=== PATIENT | female | born 1995 | race Caucasian/White ===

== ENCOUNTER 2016-10-27 17:58 | Emergency (ER) | payer MEDICAID ==
[~2016-10-27] VITALS: Ht 167.6 cm; Wt 68.0 kg
[~2016-10-27 17:58] MED LIST: BACT800T5 PO; CLON1 PO; SERT100 PO
[2016-10-27 18:02] VITALS: BP 143/99; PULSE 95; RESP 15; TEMP 98.2; O2SAT 98
--- NOTE | 2016-10-27 18:53 | PD ---
HPI Chief Complaint: Skin Problem Time Seen by Provider: 18:25 Travel History International Travel<30 days: No Contact w/Intl Traveler<30days: No Traveled to known affect area: No History of Present Illness HPI 21 year old female presents to the ER with c/o of redness & swelling of the right foot & left arm. She reports to IV drug use in these areas. She reports she has been injecting opiates for the last 4 years. She denies fever, chills, N /V/D, headache, chest pain. Patient denies homicidal or suicidal ideation. PFSH Past Medical History Asthma: Yes Bipolar Disorder: Yes Anxiety: Yes Depression: Yes Cancer: No Cardiovascular Problems: No Diabetes: No Diminished Hearing: No Endocrine: No Genitourinary: No Headaches: No Hepatitis: Yes (C) Hypertension: Yes Immune Disorder: No Musculoskeletal: No Neurologic: No Psychiatric: Yes (PTSD) Reproductive: No Respiratory: Yes (asthma) Seizures: No Tetanus Vaccination: Unknown ?: Unknown LMP: 09/25/16 : 2 Para: 1 Miscarriage: 1 Dilation and Curettage (D&C): Yes Past Surgical History Other Surgery: No Social History Alcohol Use: No Tobacco Use: Yes Substance Use: Yes (pills, meth, iv drug user. used today) Allergies-Medications (Allergen,Severity, Reaction): Coded Allergies: No Known Allergies (Unverified , 03/02/16) Reported Meds & Prescriptions Reported Meds & Active Scripts Active Bactrim DS (Sulfamethoxazole-Trimethoprim) 800-160 Mg Tab 1 Tab PO BID 7 Days Klonopin (Clonazepam) 1 Mg Tab 1 Mg PO TID Reported Zoloft (Sertraline HCl) 100 Mg Tab 100 Mg PO DAILY Klonopin (Clonazepam) 1 Mg Tab 1 Mg PO TID Review of Systems Except as stated in HPI: all other systems reviewed are Neg Skin: Positive Other (redness right foot) Physical Exam Narrative GENERAL: well appearing female. SKIN:right foot erythema, multiple erythematic indurated areas of upper & lower extremities at site of IV drug use. No areas of fluctuance. Warm and dry. No lymphangitis. HEAD: Normocephalic. EYES: No scleral icterus. No injection or drainage. NECK: Supple, trachea midline. No JVD or lymphadenopathy. CARDIOVASCULAR: Regular rate and rhythm without murmurs, gallops, or rubs. RESPIRATORY: Breath sounds equal bilaterally. No accessory muscle use. GASTROINTESTINAL: Abdomen soft, non-tender, nondistended. MUSCULOSKELETAL: No cyanosis, or edema. BACK: Nontender without obvious deformity. No CVA tenderness. Data Data Last Documented VS Vital Signs Date Time Temp Pulse Resp B/P Pulse Ox O2 Delivery O2 Flow Rate FiO2 10/27/16 18:02 98.2 95 15 143/99 98 MDM Medical Decision Making Medical Screen Exam Complete: Yes Emergency Medical Condition: Yes Medical Record Reviewed: Yes Differential Diagnosis cellulitis vs abscess Narrative Course 21 year old female, hx of IV drug use, with multiple areas of superficial infection at injection sites. R foot cellulitis. No signs of systemic infection. She is afebrile. non tachycardic. non toxic appearing. Discussed detox/substance abuse treatment centers in the area with patient. She is familiar with area resources as she was previously in the [employer] [facility]. She states she has the number & knows how to request a bed at /[facility] prescribed clindamycin for right foot cellulitis. Diagnosis Primary Impression: Cellulitis of foot, right Additional Impression: Opiate abuse, continuous Patient Instructions: General Instructions Additional Instructions: CALL [facility] for detox bed Scripts Clindamycin 300 Mg [id number] Mg PO Q6H #40 CAP Ref 0 Prov:Allyssa Rodriguez 10/27/16 Disposition: 01 DISCHARGE HOME Condition: Stable Allyssa Rodriguez October 27, 2016 18:53
[2016-10-27] MEDS ORDERED: CLIN1CAP6 PO (19:07)
== END 2016-10-27 19:45 | disposition home or self-care (01) ==
LOC: NEPD 17:58
DX: L03.119 Cellulitis of unspecified part of limb (principal); J45.909 Unspecified asthma, uncomplicated; F31.9 Bipolar disorder, unspecified; F41.8 Other specified anxiety disorders; I10 Essential (primary) hypertension; K75.89 Other specified inflammatory liver diseases; F43.10 Post-traumatic stress disorder, unspecified; F11.10 Opioid abuse, uncomplicated
CPT/HCPCS: 99282

== ENCOUNTER 2017-03-11 00:12 | Emergency (ER) | payer MEDICAID, OTHER ==
[~2017-03-11] VITALS: Ht 175.3 cm; Wt 71.0 kg
[~2017-03-11 00:12] MED LIST changes: +CLIN1CAP6 PO
[2017-03-11 00:28] VITALS: BP 115/81; PULSE 110; RESP 16; TEMP 98.6; O2SAT 97
--- NOTE | 2017-03-11 00:43 | PD ---
HPI Chief Complaint: Psychiatric Symptoms Time Seen by Provider: 00:21 Travel History International Travel<30 days: No Contact w/Intl Traveler<30days: No Traveled to known affect area: No History of Present Illness HPI 21-year-old female presents to the emergency department under White act for psychiatric evaluation. Patient states she does not know why she is here. She is currently living in a sober living house. Patient was found sleeping naked in another bed, apparently drooling. And patient awoke, she began yelling at herself and staff. Patient states that they were laughing at her so she became very upset. Denies suicidal homicidal ideations. States that she did take Klonopin which she reports being prescribed to her. Denies any other illicit drug use, however patient does have track bain on her bilateral upper extremities from IV drug use. When confronted on this, she states that she has used IV drugs in the past. Denies chest pain or tightness. No difficulty breathing. Denies suicidal or homicidal ideations. States that she is a mother and she needs to be there for her children. She has no other symptoms to report this time. PFSH Past Medical History Asthma: Yes Bipolar Disorder: Yes Anxiety: Yes Depression: Yes Cancer: No Cardiovascular Problems: No Diabetes: No Diminished Hearing: No Endocrine: No Gastrointestinal Disorders: No Genitourinary: No Headaches: No Hepatitis: Yes (C) Hypertension: Yes Immune Disorder: No Implanted Vascular Access Dvce: No Musculoskeletal: No Neurologic: No Psychiatric: Yes (PTSD) Reproductive: No Respiratory: Yes (asthma) Immunizations Current: Yes Seizures: No Tetanus Vaccination: Unknown Influenza Vaccination: No ?: Unknown : 2 Para: 1 Miscarriage: 1 Dilation and Curettage (D&C): Yes Past Surgical History Other Surgery: No Social History Alcohol Use: No Tobacco Use: Yes Substance Use: Yes (pills, meth, iv drug user. used today) Allergies-Medications (Allergen,Severity, Reaction): Coded Allergies: No Known Allergies (Unverified , 03/11/17) Reported Meds & Prescriptions Reported Meds & Active Scripts Active Clindamycin (Clindamycin HCl) 300 Mg Cap 300 Mg PO Q6H Bactrim DS (Sulfamethoxazole-Trimethoprim) 800-160 Mg Tab 1 Tab PO BID 7 Days Klonopin (Clonazepam) 1 Mg Tab 1 Mg PO TID Reported Zoloft (Sertraline HCl) 100 Mg Tab 100 Mg PO DAILY Klonopin (Clonazepam) 1 Mg Tab 1 Mg PO TID Review of Systems Except as stated in HPI: all other systems reviewed are Neg Physical Exam Narrative GENERAL: Well-nourished female patient, tearful, but in no acute distress. SKIN: Focused skin assessment warm/dry. HEAD: Atraumatic. Normocephalic. EYES: Pupils equal and round. No scleral icterus. No injection or drainage. ENT: No nasal bleeding or discharge. Mucous membranes pink and moist. NECK: Trachea midline. No JVD. CARDIOVASCULAR: Tachycardic rate and rhythm. No murmur appreciated. RESPIRATORY: No accessory muscle use. Clear to auscultation. Breath sounds equal bilaterally. GASTROINTESTINAL: Abdomen soft, non-tender, nondistended. Hepatic and splenic margins not palpable. MUSCULOSKELETAL: No obvious deformities. No clubbing. No cyanosis. No edema. NEUROLOGICAL: Awake and alert. No obvious cranial nerve deficits. Motor grossly within normal limits. Normal speech. Data Data Last Documented VS Vital Signs Date Time Temp Pulse Resp B/P (MAP) Pulse Ox O2 Delivery O2 Flow Rate FiO2 03/11/17 04:48 84/52 (63) 03/11/17 04:40 63 19 98 Room Air 03/11/17 00:28 98.6 Orders Orders Complete Blood Count With Diff (03/11/17 00:28) Basic Metabolic Panel (Bmp) (03/11/17 00:28) Psych Screen (03/11/17 00:28) Drug Screen, Random Urine (03/11/17 00:28) Alcohol (Ethanol) (03/11/17 00:28) Salicylates (Aspirin) (03/11/17 00:28) Tylenol (Acetaminophen) (03/11/17 00:28) Ed Urine Pregnancytest Poc (03/11/17 00:28) Hand, Complete (Udl1nae) (03/11/17 ) Lorazepam Inj (Ativan Inj) (03/11/17 01:15) Diet Regular Basic (03/11/17 Breakfast) ^ Straight Catheter (03/11/17 05:26) Labs Laboratory Tests Test 03/11/17 00:45 White Blood Count 6.6 TH/MM3 Red Blood Count 3.81 MIL/MM3 Hemoglobin 12.1 GM/DL Hematocrit 35.1 % Mean Corpuscular Volume 92.2 FL Mean Corpuscular Hemoglobin 31.8 PG Mean Corpuscular Hemoglobin Concent 34.5 % Red Cell Distribution Width 13.1 % Platelet Count 295 TH/MM3 Mean Platelet Volume 7.6 FL Neutrophils (%) (Auto) 33.3 % Lymphocytes (%) (Auto) 55.8 % Monocytes (%) (Auto) 8.0 % Eosinophils (%) (Auto) 2.2 % Basophils (%) (Auto) 0.7 % Neutrophils # (Auto) 2.2 TH/MM3 Lymphocytes # (Auto) 3.7 TH/MM3 Monocytes # (Auto) 0.5 TH/MM3 Eosinophils # (Auto) 0.1 TH/MM3 Basophils # (Auto) 0.0 TH/MM3 CBC Comment DIFF FINAL Differential Comment Blood Urea Nitrogen 19 MG/DL Creatinine 0.80 MG/DL Random Glucose 82 MG/DL Calcium Level 9.2 MG/DL Sodium Level 140 MEQ/L Potassium Level 3.7 MEQ/L Chloride Level 105 MEQ/L Carbon Dioxide Level 25.3 MEQ/L Anion Gap 10 MEQ/L Estimat Glomerular Filtration Rate 89 ML/MIN Salicylates Level 1.8 MG/DL Acetaminophen Level LESS THAN 2.0 MCG/ML Ethyl Alcohol Level LESS THAN 3 MG/DL MDM Medical Decision Making Medical Screen Exam Complete: Yes Emergency Medical Condition: Yes Medical Record Reviewed: Yes Differential Diagnosis Polysubstance abuse versus mood disorder versus personality disorder versus adjustment reaction disorder Narrative Course 21-year-old female presents to emergency department under a White act for psychiatric evaluation. Patient is noted to have bain consistent with IV drug use on her bilateral upper extremities. The right hand is slightly edematous. Patient is reporting left hand pain attributing it to the handcuffs. She is requesting an x-ray. This is ordered without any acute bony normality identified. Lab work is ordered. It is without acute concerning patient is medically cleared to undergo psychiatric screening for further evaluation and disposition. Mental health screening discussed with the patient. Psychiatric screen ordered. [id number] I am contacted by Aisha Benitez RN with concern about the patient's blood pressure. Patient's map remains greater than 60. She is a 21-year-old, healthy female, who did use Klonopin this evening. At this point I'm not concerned as the patient continues to be arousable and interactive appropriately. I did request a manual blood pressure. 0453 Patient's manual blood pressure interestingly is identical to the automatic blood pressure. Eli tells me that she feels the patient has overdosed yet I do not have a urine to confirm any additional substance besides the patient's reported Klonopin. With patient being arousable, cooperative, I am less concerned about an overdose at this time. I will send nursing staff over to repeat patient's BP manually as I am not confident the current readings are correct as they are identical x 3 [phone] I have called and spoke with Eli and inquired about the patient's urine , she tells me the patient is up and eating and drinking. 0530 patient has not yet voided. Straight catheter is ordered. Pt is up and eating. Diagnosis Primary Impression: Substance induced mood disorder Condition: Stable Alina Oakes Mar 11, 2017 00:43
[2017-03-11 01:00] LABS: AUTOMATED NEUTROPHIL # 2.2 TH/MM3 (1.8-7.7); BASOPHIL % 0.7 % (0.0-2.0); EOSINOPHIL # 0.1 TH/MM3 (0-0.4); EOSINOPHIL % 2.2 % (0.0-4.0); HEMATOCRIT 35.1 % (35.0-46.0); HEMO FLAGS DIFF FINAL; LYMPH % 55.8 % (9.0-44.0); LYMPHOCYTE # 3.7 TH/MM3 (1.0-4.8); MEAN CELL VOLUME 92.2 FL (80.0-100.0); MEAN CORPUSCULAR HEMOGLOBIN 31.8 PG (27.0-34.0); MEAN CORPUSCULAR HGB CONC 34.5 % (32.0-36.0); NEUT % 33.3 % (16.0-70.0); PLATELET COUNT 295 TH/MM3 (150-450); RED BLOOD COUNT 3.81 MIL/MM3 (4.00-5.30); RED CELL DISTRIBUTION WIDTH 13.1 % (11.6-17.2); WHITE BLOOD COUNT 6.6 TH/MM3 (4.0-11.0)
[2017-03-11 01:14] LABS: ANION GAP 10 MEQ/L (5-15); BICARBONATE 25.3 MEQ/L (21.0-32.0); BLOOD UREA NITROGEN 19 MG/DL (7-18); CHLORIDE 105 MEQ/L (98-107); GLOMERULAR FILTRATION RATE 89 ML/MIN (>89); POTASSIUM 3.7 MEQ/L (3.5-5.1); SODIUM (NA) 140 MEQ/L (136-145)
[2017-03-11] MEDS ORDERED: LORazepam 2 MG/ML VIAL IV PUSH ONE (01:15)
[2017-03-11 01:18] LABS: ACETAMINOPHEN LESS THAN 2.0 MCG/ML (10.0-30.0); ALCOHOL LESS THAN 3 MG/DL (0-5)
--- NOTE | 2017-03-11 02:13 | RADRPT ---
EXAM DATE/TIME: 03/11/2017 01:31 [facility] COMPARISON: No previous studies available for comparison. INDICATIONS : Left hand pain. Unknown injury. MEDICAL HISTORY : None. SURGICAL HISTORY : None. ENCOUNTER: Initial ACUITY: 1 day PAIN SCORE: Non-responsive. LOCATION: Left hand. FINDINGS: Three view examination of the left hand demonstrates no soft tissue swelling, dislocation, or fractur e. The carpal bones appear intact. The interphalangeal and metacarpophalangeal joints are intact. Bony mineralization is normal. CONCLUSION: Unremarkable examination of the left hand. Jasiel Florez MD on March 11, 2017 at 2:11 Board Certified Radiologist. This report was verified electronically.
[2017-03-11 03:03] VITALS: BP_SYST 82; BP_SYST 84; BP_DIAS 52; PULSE 53; PULSE 54; RESP 18; O2SAT 97
[2017-03-11 04:40] VITALS: BP 84/52; PULSE 63; RESP 19; O2SAT 98
[2017-03-11 04:48] VITALS: BP 84/52
[2017-03-11 05:37] VITALS: BP_SYST 104; BP_SYST 90; BP_DIAS 61; BP_DIAS 64; RESP 20
--- NOTE | 2017-03-11 10:28 | PD ---
Physical Exam Date Seen by Provider: Mar 11, 2017 Time Seen by Provider: 10:27 Narrative Patient previously brought in under the White acted and medically cleared, has been cleared by psychiatric services. She is felt to be medically cleared for discharge. Please see psychiatry note for further plan. Data Data Last Documented VS Vital Signs Date Time Temp Pulse Resp B/P (MAP) Pulse Ox O2 Delivery O2 Flow Rate FiO2 03/11/17 05:37 20 104/61 (75) Room Air 90/64 (73) 03/11/17 04:40 63 98 03/11/17 00:28 98.6 Orders Orders Complete Blood Count With Diff (03/11/17 00:28) Basic Metabolic Panel (Bmp) (03/11/17 00:28) Psych Screen (03/11/17 00:28) Drug Screen, Random Urine (03/11/17 00:28) Alcohol (Ethanol) (03/11/17 00:28) Salicylates (Aspirin) (03/11/17 00:28) Tylenol (Acetaminophen) (03/11/17 00:28) Ed Urine Pregnancytest Poc (03/11/17 00:28) Hand, Complete (Uxy2nxt) (03/11/17 ) Lorazepam Inj (Ativan Inj) (03/11/17 01:15) Diet Regular Basic (03/11/17 Breakfast) ^ Straight Catheter (03/11/17 05:26) Labs Laboratory Tests Test 03/11/17 00:45 03/11/17 05:45 White Blood Count 6.6 TH/MM3 Red Blood Count 3.81 MIL/MM3 Hemoglobin 12.1 GM/DL Hematocrit 35.1 % Mean Corpuscular Volume 92.2 FL Mean Corpuscular Hemoglobin 31.8 PG Mean Corpuscular Hemoglobin Concent 34.5 % Red Cell Distribution Width 13.1 % Platelet Count 295 TH/MM3 Mean Platelet Volume 7.6 FL Neutrophils (%) (Auto) 33.3 % Lymphocytes (%) (Auto) 55.8 % Monocytes (%) (Auto) 8.0 % Eosinophils (%) (Auto) 2.2 % Basophils (%) (Auto) 0.7 % Neutrophils # (Auto) 2.2 TH/MM3 Lymphocytes # (Auto) 3.7 TH/MM3 Monocytes # (Auto) 0.5 TH/MM3 Eosinophils # (Auto) 0.1 TH/MM3 Basophils # (Auto) 0.0 TH/MM3 CBC Comment DIFF FINAL Differential Comment Blood Urea Nitrogen 19 MG/DL Creatinine 0.80 MG/DL Random Glucose 82 MG/DL Calcium Level 9.2 MG/DL Sodium Level 140 MEQ/L Potassium Level 3.7 MEQ/L Chloride Level 105 MEQ/L Carbon Dioxide Level 25.3 MEQ/L Anion Gap 10 MEQ/L Estimat Glomerular Filtration Rate 89 ML/MIN Salicylates Level 1.8 MG/DL Acetaminophen Level LESS THAN 2.0 MCG/ML Ethyl Alcohol Level LESS THAN 3 MG/DL Urine Opiates Screen POS Urine Barbiturates Screen NEG Urine Amphetamines Screen POS Urine Benzodiazepines Screen POS Urine Cocaine Screen POS Urine Cannabinoids Screen POS MDM Medical Record Reviewed: Yes Supervised Visit with CHRISTELLE: Yes Narrative Course Patient previously brought in under the White acted and medically cleared, has been cleared by psychiatric services. She is felt to be medically cleared for discharge. Please see psychiatry note for further plan. Diagnosis Primary Impression: Substance induced mood disorder Patient Instructions: General Instructions Additional Instruction: Patient previously brought in under the White acted and medically cleared, has been cleared by psychiatric services. She is felt to be medically cleared for discharge. Please see psychiatry note for further plan. Disposition: 01 DISCHARGE HOME Condition: Stable Nitish Pedro Mar 11, 2017 10:28
--- NOTE | 2017-03-11 10:33 | PD ---
History of Present Illness Chief Complaint: Psychiatric Symptoms Time Seen by Provider: 10:00 Travel History International Travel<30 Days: No Contact w/Intl Traveler<30days: No Known affected area: No Legal Status Legal Status: White Act White Act Signed By: Kolby Snow History of Present Illness: History of Present Illness 21-year-old female with history of substance use disorder, depressive disorder who presents to the emergency department under White act initiated by CHELLE. As per the White act the police were called to a Sober Living facility in reference to a possible overdose. The patient was reported to have been unresponsive, drooling and lying naked in a bed. She also presented with " erratic behavior" ( not described) , yelling at management, attempted to fight some of the girls in the house. The patient was monitored here in J pod and she slept. No behavioral concerns. EMR reviewed. Current toxicology is positive for amphetamines, benzos, cocaine and cannabinoids. She has one admission to [facility] psychiatry in 2014 . At that time she was 15 weeks and abusing substances. The patient is alert, oriented, engaging. Speech is clear and logical. No psychosis and no earl. She denies any suicdal or homicidal ideation, intent or plan. She admits to being under the influence of various substances and that she had not slept for several days prior to going into sober living house. The patient at this time is requesting discharge. She is afraid that she will loose her job if she doesn't show up today and she also wants to be able to see her daughter today. She is also planning on returning to the sober living house. PFSH Past Medical History Asthma: Yes Bipolar Disorder: Yes Anxiety: Yes Depression: Yes Cancer: No Cardiovascular Problems: No Diabetes: No Diminished Hearing: No Endocrine: No Gastrointestinal Disorders: No Genitourinary: No Headaches: No Hepatitis: Yes (C) Hypertension: Yes Immune Disorder: No Implanted Vascular Access Dvce: No Musculoskeletal: No Neurologic: No Psychiatric: Yes (PTSD) Reproductive: No Respiratory: Yes (asthma) Immunizations Current: Yes Seizures: No Tetanus Vaccination: Unknown Influenza Vaccination: No ?: Unknown : 2 Para: 1 Miscarriage: 1 Dilation and Curettage (D&C): Yes Past Surgical History Other Surgery: No Psychiatric History Psychiatric History Hx Psychiatric Treatment: HAS A HISTORY OF BEING TREATED FOR DEPRESSION IN MAY 2015 WHILE AND USING SUBSTANCES. History of Inpatient Treatment: Yes ([facility] 2016) Guns or firearms in home: No Social History Single female.has a 17 month old daughter who is in her mother's custody. Works at [employer]. Hx Alcohol Use: No Hx Tobacco Use: Yes Hx Substance Use: Yes (POLYSUBSTANCE. IV DRUGS) Substance Use Type: Crack, Amphetamines-Stimulants, Ecstasy, Prescription Medications, Benzos (Valium,Xanax), Cocaine, Synth Opiates-Pain Pills Other Substances Used: FABRICIO, DILAUDIDS Hx of Substance Use Treatment: Yes ([employer], [facility]. Has had 8 months of sobriety) Family Psychiatric History Negative Allergies-Medications (Allergen,Severity, Reaction): Coded Allergies: No Known Allergies (Unverified , 03/11/17) Reported Meds & Prescriptions Reported Meds & Active Scripts Active Clindamycin (Clindamycin HCl) 300 Mg Cap 300 Mg PO Q6H Bactrim DS (Sulfamethoxazole-Trimethoprim) 800-160 Mg Tab 1 Tab PO BID 7 Days Klonopin (Clonazepam) 1 Mg Tab 1 Mg PO TID Reported Zoloft (Sertraline HCl) 100 Mg Tab 100 Mg PO DAILY Klonopin (Clonazepam) 1 Mg Tab 1 Mg PO TID Review of Systems Except as stated in HPI: all other systems reviewed are Neg Exam Alert: Yes [place]: Person (ox4) Mood: Anxious Affect: Appropriate Speech: Clear, Logical Eye Contact: Normal Memory Intact: Comment Hallucinations: Other (Negative) Delusions: No Suicidal: Ideation (Deneis any) Homicidal: Ideation (Deneis any) Insight/Judgement Poor. Not impaired. [facility] Medical Decision Making Medical Record Reviewed: Yes Assessment/Plan 21-year-old female with history of substance use disorder, depressive disorder who presents to the emergency department under White act initiated by CHELLE. As per the White act the police were called to a Sober Living facility in reference to a possible overdose. The patient was reported to have been unresponsive, drooling and lying naked in a bed. She also presented with " erratic behavior" ( not described) , yelling at management, attempted to fight some of the girls in the house. The patient was monitored here in J pod and she slept. No behavioral concerns. This morning the patient is cognitively intact. She does not meet criteria to remain under the White act.She is future oriented and plans on returning to sober living house as well as wanting to regain custody of her daughter. . She understands that she needs to c work on her problems with substances . Psychoeducation is provided. Recommend abstinence, insolvent with sponsor and NA. Vitaly BA. Cleared from psychiatry for discharge. Orders Orders Complete Blood Count With Diff (03/11/17 00:28) Basic Metabolic Panel (Bmp) (03/11/17 00:28) Psych Screen (03/11/17 00:28) Drug Screen, Random Urine (03/11/17 00:28) Alcohol (Ethanol) (03/11/17 00:28) Salicylates (Aspirin) (03/11/17 00:28) Tylenol (Acetaminophen) (03/11/17 00:28) Ed Urine Pregnancytest Poc (03/11/17 00:28) Hand, Complete ([id number]) (03/11/17 ) Lorazepam Inj (Ativan Inj) (03/11/17 01:15) Diet Regular Basic (03/11/17 Breakfast) ^ Straight Catheter (03/11/17 05:26) Results Vital Signs Date Time Temp Pulse Resp B/P (MAP) Pulse Ox O2 Delivery O2 Flow Rate FiO2 03/11/17 05:37 20 104/61 (75) Room Air 90/64 (73) 03/11/17 04:48 84/52 (63) 03/11/17 04:40 63 19 84/52 (63) 98 Room Air 03/11/17 03:03 53 18 84/52 (63) 97 Room Air 03/11/17 00:28 98.6 110 16 115/81 (92) 97 Laboratory Tests Test 03/11/17 00:45 03/11/17 05:45 White Blood Count 6.6 Red Blood Count 3.81 Hemoglobin 12.1 Hematocrit 35.1 Mean Corpuscular Volume 92.2 Mean Corpuscular Hemoglobin 31.8 Mean Corpuscular Hemoglobin Concent 34.5 Red Cell Distribution Width 13.1 Platelet Count 295 Mean Platelet Volume 7.6 Neutrophils (%) (Auto) 33.3 Lymphocytes (%) (Auto) 55.8 Monocytes (%) (Auto) 8.0 Eosinophils (%) (Auto) 2.2 Basophils (%) (Auto) 0.7 Neutrophils # (Auto) 2.2 Lymphocytes # (Auto) 3.7 Monocytes # (Auto) 0.5 Eosinophils # (Auto) 0.1 Basophils # (Auto) 0.0 CBC Comment DIFF FINAL Differential Comment Blood Urea Nitrogen 19 Creatinine 0.80 Random Glucose 82 Calcium Level 9.2 Sodium Level 140 Potassium Level 3.7 Chloride Level 105 Carbon Dioxide Level 25.3 Anion Gap 10 Estimat Glomerular Filtration Rate 89 Salicylates Level 1.8 Acetaminophen Level LESS THAN 2.0 Ethyl Alcohol Level LESS THAN 3 Urine Opiates Screen POS Urine Barbiturates Screen NEG Urine Amphetamines Screen POS Urine Benzodiazepines Screen POS Urine Cocaine Screen POS Urine Cannabinoids Screen POS Diagnosis Primary Impression: Substance abuse Additional Impression: Substance induced mood disorder Psychiatrically Cleared: Yes Patient Instructions: General Instructions Additional Instructions: Patient previously brought in under the White acted and medically cleared, has been cleared by psychiatric services. She is felt to be medically cleared for discharge. Please see psychiatry note for further plan. Med/ Other Pt Specific Info: No Meds Exist/No RX given Disposition: 01 DISCHARGE HOME Condition: Stable Problem Qualifiers Emelyn Moss Mar 11, 2017 10:33
== END 2017-03-11 11:30 | disposition home or self-care (01) ==
LOC: NEPD 00:12 → NEPJ 11:30
DX: F19.94 Other psychoactive substance use, unspecified with psychoactive substance-induced mood disorder (principal)
CPT/HCPCS: 73130; 80048; 80307; 84703; 85025; 99283; P9612